=== PATIENT | female | born 1955 | race Asian ===

== ENCOUNTER 2017-10-19 21:50 | Inpatient (IN) | payer MEDICAID ==
[~2017-10-19] VITALS: Ht 157.5 cm; Wt 92.6 kg
[2017-10-19 21:52] VITALS: Ht 157.5 cm; Wt 92.6 kg
[2017-10-19 22:25] LABS: BASOPHIL % 0.8 % (0-2); PLATELET COUNT 361 x10^3mcL (130-400); RED CELL DISTRIBUTION WIDTH 13.9 % (11.5-14.5)
[2017-10-19 22:34] LABS: CALCIUM 9.1 mg/dL (8.5-10.1); CARBON DIOXIDE 28.1 mmol/L (21-32); CREATININE SERUM 1.2 mg/dL (0.6-1.0); POTASSIUM SERUM 4.7 mmol/L (3.5-5.1)
[2017-10-19 22:39] LABS: BILIRUBIN TOTAL 0.46 mg/dL (0.20-1.00)
[2017-10-19 22:43] LABS: ALBUMIN 3.3 g/dL (3.4-5.0); TOTAL PROTEIN, SERUM 8.6 g/dL (6.4-8.2)
[2017-10-20 01:12] VITALS: BP 137/60
[2017-10-20 06:54] VITALS: BP 108/63
[2017-10-20 08:11] LABS: T3 TOTAL 0.87 ng/mL
[2017-10-20 08:18] LABS: UA SPECIFIC GRAVITY >=1.030 (1.005-1.035); microscopic required? YES; urine erythrocyte 1+ (NEGATIVE)
[2017-10-20 08:41] LABS: AMPHETAMINE QUAL UR NONE DETECTED (NEG <=1000)
[2017-10-20 09:37] LABS: CHOLESTEROL/HDL RATIO 3.2; MAGNESIUM 2.1 mg/dL (1.8-2.4)
[2017-10-20 09:55] VITALS: BP 109/67
[2017-10-20 10:24] LABS: FREE T4 1.03 ng/dL (0.76-1.46); FREE THYROXINE INDEX 2.5 ug/dL (1.4-4.5); T4(THYROXINE) 7.2 ug/dL (4.7-13.3)
[2017-10-20 13:52] VITALS: BP 104/70
[2017-10-20 17:24] VITALS: BP 110/57
[2017-10-20 22:26] VITALS: BP 113/65
[2017-10-21 05:09] VITALS: BP 122/71
[2017-10-21 06:32] LABS: CALCIUM 8.5 mg/dL (8.5-10.1); CARBON DIOXIDE 27.3 mmol/L (21-32); CREATININE SERUM 1.1 mg/dL (0.6-1.0); POTASSIUM SERUM 4.2 mmol/L (3.5-5.1)
[2017-10-21 06:37] LABS: BASOPHIL % 0.6 % (0-2); PLATELET COUNT 226 x10^3mcL (130-400); RED CELL DISTRIBUTION WIDTH 14.2 % (11.5-14.5)
[2017-10-21 08:36] VITALS: BP 137/73
[2017-10-21 18:00] VITALS: BP 131/64
== END 2017-10-21 20:00 | disposition home or self-care (01) | DRG 249 ==
LOC: ED 21:50 → DU 10-20 00:02 → MU 10-21 16:48
PROVIDERS: Emergency Medicine; Student in an Organized Health Care Education/Training Program
DX: K52.9 Noninfective gastroenteritis and colitis, unspecified (principal); N17.0 Acute kidney failure with tubular necrosis; G92 Toxic encephalopathy; K80.20 Calculus of gallbladder without cholecystitis without obstruction; T40.7X1A Poisoning by cannabis (derivatives), accidental (unintentional), initial encounter; R11.2 Nausea with vomiting, unspecified; N39.0 Urinary tract infection, site not specified; K43.9 Ventral hernia without obstruction or gangrene; F12.188 Cannabis abuse with other cannabis-induced disorder; Y92.009 Unspecified place in unspecified non-institutional (private) residence as the place of occurrence of the external cause
CPT/HCPCS: 83880; 84439; J0696; J2405; J3490; J7030; Q0092; Q9967